=== PATIENT | male | born 1935 | race Caucasian/White ===

== ENCOUNTER 2018-08-09 08:12 | Day surgery (SDC) | payer OTHER ==
--- NOTE | 2018-06-21 11:51 | HP ---
DATE OF ADMISSION: The patient is to be admitted to [facility] on 08/02/18. HISTORY: This is an 82-year-old man admitted to the hospital for open reduction and repair of a longstanding chronic right inguinal scrotal hernia. According to the patient the hernia has been present for many years. It has never bothered him. After this was recently noticed by Dr. Salcedo of the Medical Service, he advised the patient to undergo definitive management. The patient has no specific underlying GI, or respiratory complaints to suggest predisposition to hernia formation. PAST MEDICAL HISTORY: Significant for heart disease and he is status post myocardial infarction years ago. He also has a history of hypercholesterolemia and diabetes. PAST SURGICAL HISTORY: Significant for an appendectomy done remotely. ALLERGIES: SULFA DRUGS. REGULAR MEDICATIONS: Multiple and include digoxin, enalapril, carvedilol, atorvastatin, metformin, oxybutynin, and finasteride. SOCIAL HISTORY: Negative tobacco. The patient did smoke remotely. No alcohol. FAMILY HISTORY: Father history of heart disease. Mother history of intracerebral hemorrhage. Siblings x2 with no solange issues. REVIEW OF SYSTEMS: Otherwise nil. PHYSICAL EXAMINATION: Patient examined in the erect and supine position, there is a large right inguinal scrotal hernia. There is no obvious left hernia. In the supine position a portion but not all of the right inguinal scrotal contents can be reduced. The testes are bilaterally atrophic. IMPRESSION: Longstanding chronically incarcerated right inguinal scrotal hernia. PLAN: Reduction of chronically incarcerated right inguinal scrotal hernia with mesh. Indications, alternatives, and possible complications reviewed. Issues that revolve about the mesh were reviewed extensively as well. Consent obtained. Patient is to be seen preoperatively by Dr. Scottie Salcedo of the Medical Service as well as Dr. Ramon of the Cardiology Service. Please refer to those notes for those medical details. LATISHA MAYA M.D. VIVIANA/[id number] cc: Scottie Salcedo MD [facility]
[2018-07-18 14:27] VITALS: BMI 32.3
--- NOTE | 2018-08-01 13:29 | HP ---
DATE OF ADMISSION: 08/02/2018 HISTORY: This is an updated history and physical examination on an 82-year-old man admitted for open reduction repair of a longstanding chronically incarcerated right inguinal scrotal hernia. His general medical condition has not changed and is significant for heart disease, and he is status post myocardial infarction. Also, history of hypocholesterolemia and diabetes. SURGICAL HISTORY: Significant for appendectomy remotely. ALLERGIES: SULFA DRUGS. REGULAR MEDICATIONS: Digoxin, enalapril, carvedilol, atorvastatin, metformin, oxybutynin, finasteride. SOCIAL HISTORY: Negative for tobacco. Patient did smoke remotely. Negative for alcohol. FAMILY HISTORY: Father , history of heart disease. Mother , history of intracerebral hemorrhage. Siblings x2 with no health issues. REVIEW OF SYSTEMS: Nil. PHYSICAL EXAMINATION: Abdomen: Unchanged, with large right inguinal scrotal hernia noted. IMPRESSION: Longstanding chronically incarcerated right inguinal scrotal hernia. PLAN: Repair chronically incarcerated right inguinal scrotal hernia with mesh. Indications, alternatives, possible complications were reviewed. LATISHA MAYA M.D. [id number]
[2018-08-09] MEDS ORDERED: TAMSULOSIN HCL 0.4 MG CAP ONE (08:36)
[2018-08-09] MEDS ORDERED: CEFAZOLIN 1 GM/D5W 1 GM/50 ML BAG ONE (08:37)
[2018-08-09] MEDS ORDERED: TAMSULOSIN HCL 0.4 MG CAP PO ONE (08:40)
[2018-08-09] MEDS ORDERED: DESFLURANE GAS 240 ML BOTTLE IH ONE (09:10)
[2018-08-09] MEDS ORDERED: BUPIVACAINE HCL/PF 0.5% (5MG/ML) 10 ML VIAL ONE (09:10)
[2018-08-09] MEDS ORDERED: SEVOFLURANE 250 ML BTL ONE (09:10)
[2018-08-09] MEDS ORDERED: ceFAZolin SODIUM 1 GM VIAL IVPB ONE (09:43)
[2018-08-09] MEDS ORDERED: BUPIVACAINE HCL/PF (5 MG/ML) 30 ML VIAL IJ ONE ×2 (10:27)
[2018-08-09] MEDS ORDERED: ONDANSETRON 4 MG/2 ML VIAL IVPUSH PRN (11:18)
[2018-08-09] MEDS ORDERED: LACTATED RINGERS SOLUTION 1,000 ML IV SCH (11:30)
[2018-08-09] MEDS ORDERED: DEXAMETHASONE SOD PHOSPHATE 4 MG/1 ML VIAL ONE (12:15)
[2018-08-09] MEDS ORDERED: DEXAMETHASONE SOD PHOSPHATE 4 MG/1 ML VIAL IVPUSH ONE (14:06)
[2018-08-09 14:48] VITALS: TEMP 97
[2018-08-09] MEDS ORDERED: METOCLOPRAMIDE HCL INJECTION 10 MG/2 ML VIAL ONE (14:49)
[2018-08-09] MEDS ORDERED: METOCLOPRAMIDE HCL INJECTION 10 MG/2 ML VIAL IVPB ONE (14:50)
[2018-08-09] MEDS ORDERED: ONDANSETRON 4 MG/2 ML VIAL IVPUSH ONE (14:56)
[2018-08-09] MEDS ORDERED: METOCLOPRAMIDE HCL INJECTION 10 MG/2 ML VIAL IVPUSH ONE (14:59)
[2018-08-09 17:51] VITALS: BP 138/67; PULSE 80
--- NOTE | 2018-08-09 23:21 | OP ---
DATE OF OPERATION: 08/09/2018 PREOPERATIVE DIAGNOSIS: Chronically incarcerated right inguinal scrotal hernia. POSTOPERATIVE DIAGNOSIS: Chronically incarcerated right inguinal scrotal hernia. PROCEDURE: Open reduction repair of chronically incarcerated right inguinal scrotal hernia with mesh/intermediate wound closure (8 cm). OPERATING SURGEON: Jose Elias Silva M.D. ARMORED CABLE MACHINE OPERATOR: Chuy Sawyer M.D. ANESTHESIA: General. ANESTHESIOLOGIST: Edda Callaway M.D. HISTORY: An 83-year-old man who presents for open reduction, repair of chronically incarcerated large right inguinal scrotal hernia with mesh. Indications, alternatives, possible complications reviewed. Consent obtained. DESCRIPTION OF PROCEDURE: With the patient in the supine position, after general anesthesia, the abdomen was prepped and draped in the usual sterile fashion using chlorhexidine. An 8-cm right groin incision was made between the right pubic tubercle and the right iliac spine. Incision was deepened into the subcutaneous space. All identified vessels in subcutaneous space were clamped, divided, and ligated. Ultimately, external oblique aponeurosis was identified. It was incised in the direction of its fibers through the external ring. The ilioinguinal nerve was identified and spared. The undersurface of the split external oblique aponeurosis remained at the level of the pubic tubercle. At the pubic tubercle, Coreen drain was placed around the cord structures. The cord was skeletonized of its cremasteric fibers. The large hernia sac and contents which appeared to represent bowel were from their attachment to the remaining cord structures and mobilized to the level of the preperitoneal fat and inferior epigastric vessels. At that junction the contents of the sac were easily reduced. The sac was opened, found to contain no residual contents. It was transfixed at its base with 0 silk suture material x2. The sac was amputated and sent as specimen and labeled right inguinal hernia sac. Now directing our attention to the inguinal floor, there was complete attenuation of the transversalis fascia. The transversalis fascia was split throughout its length. The preperitoneal tissues were reduced. Davol plug was placed in the preperitoneal space and tacked to the undersurface of the posterior musculature using interrupted 2-0 Prolene sutures. The attenuated transversalis fascia was imbricated in 2 layers with a Davol plug using a continuous 2-0 Prolene suture. The suture was placed and begun at the pubic tubercle, progressed superiorly recreating the internal ring to permit only fingertip entrance, and returning to the pubic tubercle where it was tied. An overlying mesh was then fashioned about the inguinal floor. It was tacked in place circumferentially using interrupted 2-0 Prolene sutures. The keyhole portion of the mesh was wrapped around the cord and tacked in place, buttressing the internal ring. Ultimately the cord and the ilioinguinal nerve were then returned to their anatomic positions. The external oblique aponeurosis was closed using continuous 3-0 Vicryl suture. After adequate hemostasis, the wound was closed in layers. Geovany fascia was approximated using interrupted 3-0 Vicryl suture. Subcutaneous tissue were approximated with interrupted 3-0 plain sutures. Skin edges were closed using continuous 4-0 Biosyn in the subcuticular space. Complete closure of the wound, 10 mL of 0.5% Marcaine was freely instilled in the wound. Dermabond applied. Procedure terminated. Needle, sponge, instrument count correct. Estimated blood loss minimal. Specimen right inguinal hernia sac. Drains none. Implant mesh plug. Patient tolerated the procedure. Procedure was terminated. Patient was transferred to recovery. Johnny [id number] MTDD
--- NOTE | 2018-08-10 16:50 | PATH ---
Surgical Pathology Report Patient Name: DOUGLAS ROBB [facility]. Rec. #: [id number] /Age/Gender: 1935 (Age: 83) / M Account: [id number] Location: [facility] SURGICAL Taken: 08/09/2018 Received: 08/09/2018 Reported: 08/10/2018 Physicians: Jose Elias Silva M.D. Specimen(s) Received HERNIA SAC Clinical History Right incarcerated inguinal hernia Final Diagnosis HERNIA SAC, RIGHT, OPEN INCARCERATED HERNIA REPAIR: HERNIA SAC. Electronically Signed Katheryn Harris M.D. Gross Description Received in formalin labeled "hernia sac," is a 6.0 x 5.0 x 2.0 cm quintana-herrera portion of fibromembranous tissue with minimal attached fat, consistent with a hernia sac. A food products sales representative section is submitted in one cassette. /08/09/201808/09/2018
== END 2018-08-09 17:20 | disposition home or self-care (01) ==
LOC: JASU-SURG 08:12
PROVIDERS: ATTEND Surgery
PROC: 0YU50JZ Supplement Right Inguinal Region with Synthetic Substitute, Open Approach (ICD-10-PCS; principal; 2018-08-09 09:30)
DX: K40.30 Unilateral inguinal hernia, with obstruction, without gangrene, not specified as recurrent (principal); I10 Essential (primary) hypertension; E11.9 Type 2 diabetes mellitus without complications; Z79.84 Long term (current) use of oral hypoglycemic drugs
CPT/HCPCS: 82962; 88302-TC; 94010; 94760

== ENCOUNTER 2021-12-17 13:52 | Inpatient (IN) | payer OTHER ==
[2021-12-17 15:57] VITALS: BMI 32.4
[2021-12-17 17:03] LABS: INR 1.02 (0.83-1.09); PROTHROMBIN TIME (PATIENT) 11.7 SEC (9.7-13.0)
[2021-12-17 17:05] LABS: ACTIVATED PTT 27.5 SECONDS (25.2-36.5)
[2021-12-17 17:11] LABS: HEMATOCRIT 36.3 % (35.4-49); HEMOGLOBIN 12.4 G/dL (11.7-16.9); MCH 33.7 pg (25.7-33.7); MCHC 34.2 g/dl (32.0-35.9); MEAN CELL VOLUME 98.5 fl (80-96); MEAN PLT VOLUME 8.7 fl (7.5-11.1); PLATELET COUNT 119.4 10^3/uL (134-434); RBC 3.69 10^6/uL (4.00-5.60); RDW 14.5 % (11.9-15.9); WHITE BLOOD COUNT 6.5 10^3/uL (4.0-10.8)
[2021-12-17 17:30] LABS: ALBUMIN 4.3 g/dl (3.4-5.0); BILIRUBIN,TOTAL 0.7 mg/dl (0.2-1); CALCIUM 10.5 mg/dl (8.5-10); CREATININE 1.3 mg/dl (0.55-1.3); TOT PROT 7.6 g/dl (6.4-8.2)
[2021-12-17 21:05] LABS: EPITHELIAL CELLS FEW /hpf
[2021-12-18] MEDS: sitaGLIPtin PHOSPHATE 50 MG TABLET PO SCH (06:18)
[2021-12-18 08:14] LABS: ALBUMIN 3.8 g/dl (3.4-5.0); BILIRUBIN,TOTAL 0.8 mg/dl (0.2-1); CALCIUM 9.7 mg/dl (8.5-10); CREATININE 1.4 mg/dl (0.55-1.3); MAGNESIUM 1.5 mg/dL (1.8-2.4); TOT PROT 6.7 g/dl (6.4-8.2)
[2021-12-18 08:25] LABS: HEMATOCRIT 34.8 % (35.4-49); HEMOGLOBIN 11.7 G/dL (11.7-16.9); MCH 33.4 pg (25.7-33.7); MCHC 33.6 g/dl (32.0-35.9); MEAN CELL VOLUME 99.2 fl (80-96); MEAN PLT VOLUME 8.9 fl (7.5-11.1); PLATELET COUNT 121.3 10^3/uL (134-434); RBC 3.51 10^6/uL (4.00-5.60); RDW 14.7 % (11.9-15.9); WHITE BLOOD COUNT 6.7 10^3/uL (4.0-10.8)
[2021-12-18] MEDS: DIGOXIN 0.125 MG TABLET PO SCH (09:12)
[2021-12-18] MEDS: ASPIRIN COATED 81 MG TABLET.EC PO SCH (09:12)
[2021-12-18] MEDS: TAMSULOSIN HCL 0.4 MG CAP PO SCH (09:12)
[2021-12-18] MEDS: ENALAPRIL MALEATE 10 MG TABLET PO SCH (09:13)
[2021-12-18] MEDS: CARVEDILOL 6.25 MG TABLET (FP) PO SCH ×2 (10:00→22:22)
[2021-12-18] MEDS ORDERED: MAGNESIUM SULF 50% (8.12 MEQ/2 ML-1 GM VIAL) IVPB ONE (12:02)
[2021-12-18] MEDS ORDERED: MAGNESIUM SULFATE IN WATER 2 GM/50 ML IVPB IVPB ONE (12:30)
[2021-12-18] MEDS: CEFTRIAXONE 1 GM in DEXTROSE 5%-WATER - 50 ML IVPB SCH (14:30)
[2021-12-18] MEDS ORDERED: DEXTROSE 5%-WATER - 50 ML IVPB ONE (14:44)
[2021-12-18] MEDS ORDERED: cefTRIAXone SODIUM 1 GM VIAL ONE (14:44)
[2021-12-18 16:10] LABS: SARS-CoV-2 NAA Detected (Not Detected)
[2021-12-18] MEDS: INSULIN (NOVOLOG) ASPART 100 UNITS/ML 10ML VIAL SQ SCH ×2 (16:30→22:23)
[2021-12-18] MEDS: HEPARIN NA (PORCINE) 5,000 UNITS/ML 1ML VIAL SQ SCH (22:21)
[2021-12-18] MEDS: ATORVASTATIN CA 20 MG TABLET (FP) PO SCH (22:22)
[2021-12-18] MEDS: CHOLECALCIFEROL (VIT D3) 1,000 UNIT (25 MCG) TABLET PO SCH (22:22)
[2021-12-19] MEDS: INSULIN (NOVOLOG) ASPART 100 UNITS/ML 10ML VIAL SQ SCH ×4 (06:23→22:07)
[2021-12-19] MEDS: HEPARIN NA (PORCINE) 5,000 UNITS/ML 1ML VIAL SQ SCH ×3 (06:23→21:39)
[2021-12-19] MEDS: sitaGLIPtin PHOSPHATE 50 MG TABLET PO SCH (06:23)
[2021-12-19] MEDS ORDERED: DEXTROSE 5%-WATER - 50 ML IVPB ONE (10:04)
[2021-12-19] MEDS ORDERED: cefTRIAXone SODIUM 1 GM VIAL ONE (10:04)
[2021-12-19] MEDS: DIGOXIN 0.125 MG TABLET PO SCH (10:09)
[2021-12-19] MEDS: TAMSULOSIN HCL 0.4 MG CAP PO SCH (10:10)
[2021-12-19] MEDS: CEFTRIAXONE 1 GM in DEXTROSE 5%-WATER - 50 ML IVPB SCH (10:10)
[2021-12-19] MEDS: CARVEDILOL 6.25 MG TABLET (FP) PO SCH ×2 (10:10→21:39)
[2021-12-19] MEDS: ASPIRIN COATED 81 MG TABLET.EC PO SCH (10:10)
[2021-12-19] MEDS: ENALAPRIL MALEATE 10 MG TABLET PO SCH (11:05)
[2021-12-19] MEDS ORDERED: REMDESIVIR 200 MG in SODIUM CHLORIDE 250 ML IVPB ONE (14:26)
[2021-12-19] MEDS ORDERED: MAGNESIUM OXIDE 400 MG TABLET (FP) PO ONE (14:28)
[2021-12-19] MEDS ORDERED: DEXAMETHASONE SOD PHOSPHATE 10 MG/1 ML VIAL IM SCH (14:30)
[2021-12-19] MEDS: DEXAMETHASONE SOD PHOSPHATE 10 MG/1 ML VIAL IVPUSH SCH ×2 (15:16→21:38)
[2021-12-19] MEDS: CHOLECALCIFEROL (VIT D3) 1,000 UNIT (25 MCG) TABLET PO SCH (21:38)
[2021-12-19] MEDS: ATORVASTATIN CA 20 MG TABLET (FP) PO SCH (21:38)
[2021-12-20] MEDS: DEXAMETHASONE SOD PHOSPHATE 10 MG/1 ML VIAL IVPUSH SCH ×2 (02:59→09:44)
[2021-12-20] MEDS: HEPARIN NA (PORCINE) 5,000 UNITS/ML 1ML VIAL SQ SCH ×3 (06:12→23:00)
[2021-12-20] MEDS: sitaGLIPtin PHOSPHATE 50 MG TABLET PO SCH (06:12)
[2021-12-20] MEDS: INSULIN (NOVOLOG) ASPART 100 UNITS/ML 10ML VIAL SQ SCH ×4 (06:12→23:20)
[2021-12-20 08:12] LABS: BASO % 0.2 % (0-2.0); HEMATOCRIT 35.1 % (35.4-49); HEMOGLOBIN 12.3 GM/dL (11.7-16.9); LYMPH % 10.5 % (8-40); MCHC 35.1 g/dl (32.0-35.9); MEAN CELL VOLUME 97.1 fl (80-96); NEUT % 86.3 % (42.8-82.8); PLATELET COUNT 110 10^3/uL (134-434); RBC 3.61 M/mm3 (4.00-5.60); RDW 14.8 % (11.9-15.9); WHITE BLOOD COUNT 5.3 K/mm3 (4.0-10.0)
[2021-12-20 08:38] LABS: CALCIUM 9.4 mg/dL (8.5-10.1)
[2021-12-20 08:39] LABS: ALBUMIN 3.5 g/dl (3.4-5.0); BLOOD UREA NITROGEN 34.8 mg/dL (7-18); MAGNESIUM 2.3 mg/dL (1.8-2.4)
[2021-12-20 08:42] LABS: CREATININE 1.6 mg/dL (0.55-1.3)
[2021-12-20 08:43] LABS: BILIRUBIN,TOTAL 0.4 mg/dL (0.2-1); TOT PROT 7.2 g/dl (6.4-8.2)
[2021-12-20] MEDS ORDERED: cefTRIAXone SODIUM 1 GM VIAL ONE (09:41)
[2021-12-20] MEDS ORDERED: DEXTROSE 5%-WATER - 50 ML IVPB ONE (09:41)
[2021-12-20] MEDS: TAMSULOSIN HCL 0.4 MG CAP PO SCH (09:44)
[2021-12-20] MEDS: CARVEDILOL 6.25 MG TABLET (FP) PO SCH ×2 (09:44→22:59)
[2021-12-20] MEDS: DIGOXIN 0.125 MG TABLET PO SCH (09:44)
[2021-12-20] MEDS: CEFTRIAXONE 1 GM in DEXTROSE 5%-WATER - 50 ML IVPB SCH (09:44)
[2021-12-20] MEDS: ASPIRIN COATED 81 MG TABLET.EC PO SCH (09:44)
[2021-12-20] MEDS: PANTOPRAZOLE 40 MG TABLET PO SCH (09:44)
[2021-12-20] MEDS: ENALAPRIL MALEATE 10 MG TABLET PO SCH (09:47)
[2021-12-20] MEDS: REMDESIVIR 100 MG in SODIUM CHLORIDE 250 ML IVPB SCH (16:00)
[2021-12-20] MEDS: CHOLECALCIFEROL (VIT D3) 1,000 UNIT (25 MCG) TABLET PO SCH (22:59)
[2021-12-20] MEDS: ATORVASTATIN CA 20 MG TABLET (FP) PO SCH (22:59)
[2021-12-21] MEDS: HEPARIN NA (PORCINE) 5,000 UNITS/ML 1ML VIAL SQ SCH ×3 (06:56→22:33)
[2021-12-21] MEDS: INSULIN (NOVOLOG) ASPART 100 UNITS/ML 10ML VIAL SQ SCH ×4 (06:56→22:48)
[2021-12-21] MEDS: sitaGLIPtin PHOSPHATE 50 MG TABLET PO SCH (06:56)
[2021-12-21] MEDS ORDERED: DEXTROSE 5%-WATER - 50 ML IVPB ONE (09:24)
[2021-12-21] MEDS ORDERED: cefTRIAXone SODIUM 1 GM VIAL ONE (09:24)
[2021-12-21] MEDS: CEFTRIAXONE 1 GM in DEXTROSE 5%-WATER - 50 ML IVPB SCH (09:27)
[2021-12-21 09:29] LABS: BASO % 0.2 % (0-2.0); HEMATOCRIT 33.9 % (35.4-49); HEMOGLOBIN 11.9 GM/dL (11.7-16.9); LYMPH % 10.9 % (8-40); MCH 33.9 pg (25.7-33.7); MEAN CELL VOLUME 96.8 fl (80-96); MEAN PLT VOLUME 9.3 fl (7.5-11.1); MONO % 7.5 % (3.8-10.2); NEUT % 81.4 % (42.8-82.8); PLATELET COUNT 116 10^3/uL (134-434); RBC 3.51 M/mm3 (4.00-5.60); RDW 14.8 % (11.9-15.9); WHITE BLOOD COUNT 8.9 K/mm3 (4.0-10.0)
[2021-12-21] MEDS: DEXAMETHASONE SOD PHOSPHATE 10 MG/1 ML VIAL IVPUSH SCH (09:29)
[2021-12-21] MEDS: ASPIRIN COATED 81 MG TABLET.EC PO SCH (09:29)
[2021-12-21] MEDS: DIGOXIN 0.125 MG TABLET PO SCH (09:29)
[2021-12-21] MEDS: CARVEDILOL 6.25 MG TABLET (FP) PO SCH ×2 (09:29→22:33)
[2021-12-21] MEDS: PANTOPRAZOLE 40 MG TABLET PO SCH (09:29)
[2021-12-21] MEDS: TAMSULOSIN HCL 0.4 MG CAP PO SCH (09:29)
[2021-12-21] MEDS: ENALAPRIL MALEATE 10 MG TABLET PO SCH (09:32)
[2021-12-21 09:49] LABS: BLOOD UREA NITROGEN 51.6 mg/dL (7-18)
[2021-12-21 09:50] LABS: ALBUMIN 3.1 g/dl (3.4-5.0)
[2021-12-21 09:51] LABS: CALCIUM 9.1 mg/dL (8.5-10.1); MAGNESIUM 2.4 mg/dL (1.8-2.4)
[2021-12-21 09:53] LABS: CREATININE 1.8 mg/dL (0.55-1.3)
[2021-12-21 09:57] LABS: TOT PROT 6.7 g/dl (6.4-8.2)
[2021-12-21 09:59] LABS: BILIRUBIN,TOTAL 0.3 mg/dL (0.2-1)
[2021-12-21] MEDS: REMDESIVIR 100 MG in SODIUM CHLORIDE 250 ML IVPB SCH (14:54)
[2021-12-21] MEDS ORDERED: SODIUM CHLORIDE 0.45% 1,000 ML IV SCH (15:00)
[2021-12-21] MEDS: CHOLECALCIFEROL (VIT D3) 1,000 UNIT (25 MCG) TABLET PO SCH (22:33)
[2021-12-21] MEDS: ATORVASTATIN CA 20 MG TABLET (FP) PO SCH (22:33)
[2021-12-22] MEDS: HEPARIN NA (PORCINE) 5,000 UNITS/ML 1ML VIAL SQ SCH ×3 (06:28→22:12)
[2021-12-22] MEDS: sitaGLIPtin PHOSPHATE 50 MG TABLET PO SCH (06:29)
[2021-12-22] MEDS: INSULIN (NOVOLOG) ASPART 100 UNITS/ML 10ML VIAL SQ SCH ×4 (06:33→22:14)
[2021-12-22 07:46] LABS: BASO % 0.1 % (0-2.0); HEMATOCRIT 33.7 % (35.4-49); HEMOGLOBIN 11.4 GM/dL (11.7-16.9); MCH 32.9 pg (25.7-33.7); MCHC 33.9 g/dl (32.0-35.9); MEAN CELL VOLUME 97.2 fl (80-96); MEAN PLT VOLUME 9.6 fl (7.5-11.1); MONO % 6.6 % (3.8-10.2); NEUT % 82.3 % (42.8-82.8); PLATELET COUNT 121 10^3/uL (134-434); RBC 3.47 M/mm3 (4.00-5.60); RDW 14.6 % (11.9-15.9); WHITE BLOOD COUNT 8.1 K/mm3 (4.0-10.0)
[2021-12-22 08:15] LABS: EPI CELLS 15 /uL (0-25.1); HYALINE CASTS 1 /uL (0-3.1); URINE APPEARANCE CLEAR; URINE BACTERIA 6 /uL (0-1359); URINE BILIRUBIN NEGATIVE (NEGATIVE); URINE COLOR YELLOW; URINE GLUCOSE (UA) 1+ (NEGATIVE); URINE KETONE NEGATIVE (NEGATIVE); URINE LEUK ESTERASE 1+ (NEGATIVE); URINE NITRITE NEGATIVE (NEGATIVE); URINE PROTEIN TRACE (NEGATIVE); URINE RBC 7 /uL (0-23.9); URINE UROBILINOGEN 0.2 mg/dL (0.2-1.0); URINE WBC 121 /uL (0-25.8)
[2021-12-22 08:38] LABS: ALBUMIN 3.2 g/dl (3.4-5.0); BILIRUBIN,TOTAL 0.2 mg/dL (0.2-1); BLOOD UREA NITROGEN 50.8 mg/dL (7-18); CALCIUM 8.7 mg/dL (8.5-10.1); CREATININE 1.6 mg/dL (0.55-1.3); MAGNESIUM 2.5 mg/dL (1.8-2.4); TOT PROT 6.6 g/dl (6.4-8.2)
[2021-12-22] MEDS ORDERED: cefTRIAXone SODIUM 1 GM VIAL ONE (08:58)
[2021-12-22] MEDS ORDERED: DEXTROSE 5%-WATER - 50 ML IVPB ONE (08:59)
[2021-12-22] MEDS: ASPIRIN COATED 81 MG TABLET.EC PO SCH (09:06)
[2021-12-22] MEDS: TAMSULOSIN HCL 0.4 MG CAP PO SCH (09:07)
[2021-12-22] MEDS: CARVEDILOL 6.25 MG TABLET (FP) PO SCH ×2 (09:07→22:13)
[2021-12-22] MEDS: PANTOPRAZOLE 40 MG TABLET PO SCH (09:07)
[2021-12-22] MEDS: CEFTRIAXONE 1 GM in DEXTROSE 5%-WATER - 50 ML IVPB SCH (09:07)
[2021-12-22] MEDS: DEXAMETHASONE SOD PHOSPHATE 10 MG/1 ML VIAL IVPUSH SCH (09:09)
[2021-12-22] MEDS: DIGOXIN 0.125 MG TABLET PO SCH (09:11)
[2021-12-22] MEDS ORDERED: SODIUM CHLORIDE 0.45% 1,000 ML IV SCH (11:00)
[2021-12-22] MEDS: REMDESIVIR 100 MG in SODIUM CHLORIDE 250 ML IVPB SCH (16:47)
[2021-12-22] MEDS: CHOLECALCIFEROL (VIT D3) 1,000 UNIT (25 MCG) TABLET PO SCH (22:13)
[2021-12-22] MEDS: ATORVASTATIN CA 20 MG TABLET (FP) PO SCH (22:13)
[2021-12-23] MEDS: HEPARIN NA (PORCINE) 5,000 UNITS/ML 1ML VIAL SQ SCH ×3 (06:31→21:54)
[2021-12-23] MEDS: sitaGLIPtin PHOSPHATE 50 MG TABLET PO SCH (06:31)
[2021-12-23] MEDS: INSULIN (NOVOLOG) ASPART 100 UNITS/ML 10ML VIAL SQ SCH ×4 (08:16→21:58)
[2021-12-23] MEDS: TAMSULOSIN HCL 0.4 MG CAP PO SCH (08:48)
[2021-12-23 09:15] LABS: BASO % 0.2 % (0-2.0); EOS % 0.2 % (0-4.5); HEMATOCRIT 33.1 % (35.4-49); HEMOGLOBIN 11.1 GM/dL (11.7-16.9); LYMPH % 17.6 % (8-40); MCH 32.5 pg (25.7-33.7); MCHC 33.6 g/dl (32.0-35.9); MEAN CELL VOLUME 96.9 fl (80-96); MEAN PLT VOLUME 9.6 fl (7.5-11.1); MONO % 9.2 % (3.8-10.2); NEUT % 72.8 % (42.8-82.8); PLATELET COUNT 114 10^3/uL (134-434); RBC 3.41 M/mm3 (4.00-5.60); RDW 14.6 % (11.9-15.9); WHITE BLOOD COUNT 6.6 K/mm3 (4.0-10.0)
[2021-12-23] MEDS ORDERED: DEXTROSE 5%-WATER - 50 ML IVPB ONE (09:47)
[2021-12-23] MEDS ORDERED: cefTRIAXone SODIUM 1 GM VIAL ONE (09:47)
[2021-12-23] MEDS: CEFTRIAXONE 1 GM in DEXTROSE 5%-WATER - 50 ML IVPB SCH (09:52)
[2021-12-23] MEDS: ASPIRIN COATED 81 MG TABLET.EC PO SCH (09:52)
[2021-12-23] MEDS: PANTOPRAZOLE 40 MG TABLET PO SCH (09:52)
[2021-12-23] MEDS: DEXAMETHASONE SOD PHOSPHATE 10 MG/1 ML VIAL IVPUSH SCH (09:52)
[2021-12-23] MEDS: CARVEDILOL 6.25 MG TABLET (FP) PO SCH ×2 (09:52→21:53)
[2021-12-23] MEDS: DIGOXIN 0.125 MG TABLET PO SCH (09:53)
[2021-12-23 10:56] LABS: ALBUMIN 3.1 g/dl (3.4-5.0); BILIRUBIN,TOTAL 0.2 mg/dL (0.2-1); BLOOD UREA NITROGEN 42.2 mg/dL (7-18); CALCIUM 8.6 mg/dL (8.5-10.1); CREATININE 1.4 mg/dL (0.55-1.3); MAGNESIUM 2.5 mg/dL (1.8-2.4); TOT PROT 6.3 g/dl (6.4-8.2)
[2021-12-23] MEDS: REMDESIVIR 100 MG in SODIUM CHLORIDE 250 ML IVPB SCH (15:29)
[2021-12-23 21:09] LABS: SARS-CoV-2 NAA Detected (Not Detected)
[2021-12-23] MEDS: CHOLECALCIFEROL (VIT D3) 1,000 UNIT (25 MCG) TABLET PO SCH (21:54)
[2021-12-23] MEDS: ATORVASTATIN CA 20 MG TABLET (FP) PO SCH (21:54)
[2021-12-24] MEDS: HEPARIN NA (PORCINE) 5,000 UNITS/ML 1ML VIAL SQ SCH (06:31)
[2021-12-24] MEDS: sitaGLIPtin PHOSPHATE 50 MG TABLET PO SCH (06:32)
[2021-12-24] MEDS: INSULIN (NOVOLOG) ASPART 100 UNITS/ML 10ML VIAL SQ SCH ×2 (06:46→11:23)
[2021-12-24 08:31] VITALS: TEMP 98.2
[2021-12-24] MEDS ORDERED: DEXTROSE 5%-WATER - 50 ML IVPB ONE (08:56)
[2021-12-24] MEDS ORDERED: cefTRIAXone SODIUM 1 GM VIAL ONE (08:56)
[2021-12-24] MEDS: DIGOXIN 0.125 MG TABLET PO SCH (09:00)
[2021-12-24] MEDS: TAMSULOSIN HCL 0.4 MG CAP PO SCH (09:00)
[2021-12-24] MEDS: PANTOPRAZOLE 40 MG TABLET PO SCH (09:00)
[2021-12-24] MEDS: ASPIRIN COATED 81 MG TABLET.EC PO SCH (09:00)
[2021-12-24] MEDS: CARVEDILOL 6.25 MG TABLET (FP) PO SCH (09:01)
[2021-12-24] MEDS: CEFTRIAXONE 1 GM in DEXTROSE 5%-WATER - 50 ML IVPB SCH (09:03)
[2021-12-24] MEDS ORDERED: DEXAMETHASONE 4 MG TABLET (FP) PO SCH (10:00)
[2021-12-24 10:41] LABS: BASO % 0.3 % (0-2.0); EOS % 1.2 % (0-4.5); HEMATOCRIT 35.2 % (35.4-49); LYMPH % 24.4 % (8-40); MCH 32.8 pg (25.7-33.7); MEAN CELL VOLUME 96.6 fl (80-96); MEAN PLT VOLUME 8.9 fl (7.5-11.1); MONO % 8.7 % (3.8-10.2); NEUT % 65.4 % (42.8-82.8); PLATELET COUNT 114 10^3/uL (134-434); RBC 3.64 M/mm3 (4.00-5.60); RDW 14.6 % (11.9-15.9); WHITE BLOOD COUNT 7.5 K/mm3 (4.0-10.0)
[2021-12-24 12:59] LABS: ALBUMIN 3.3 g/dl (3.4-5.0); BILIRUBIN,TOTAL 0.3 mg/dL (0.2-1); BLOOD UREA NITROGEN 40.4 mg/dL (7-18); CALCIUM 9.1 mg/dL (8.5-10.1); CREATININE 1.4 mg/dL (0.55-1.3); MAGNESIUM 2.4 mg/dL (1.8-2.4); TOT PROT 6.6 g/dl (6.4-8.2)
[2021-12-24 13:19] VITALS: BP 139/79; PULSE 62
== END 2021-12-24 14:20 | disposition home health service (06) | DRG 177 ==
LOC: FER 13:52 → OBSVTOIN 16:57 → FM/S 16:57 → J4S 12-19 01:41
PROVIDERS: ADMIT Internal Medicine; ATTEND Nurse Practitioner Acute Care
PROC: XW033E5 Introduction of Remdesivir Anti-infective into Peripheral Vein, Percutaneous Approach, New Technology Group 5 (ICD-10-PCS; principal; 2021-12-19)
DX: U07.1 COVID-19 (principal); J12.82 Pneumonia due to coronavirus disease 2019; N17.9 Acute kidney failure, unspecified; I47.2 Ventricular tachycardia; N39.0 Urinary tract infection, site not specified; I11.0 Hypertensive heart disease with heart failure; F02.80 Dementia in other diseases classified elsewhere, unspecified severity, without behavioral disturbance, psychotic disturbance, mood disturbance, and anxiety; E11.9 Type 2 diabetes mellitus without complications; G30.9 Alzheimer's disease, unspecified; E78.5 Hyperlipidemia, unspecified; I25.10 Atherosclerotic heart disease of native coronary artery without angina pectoris; N40.0 Benign prostatic hyperplasia without lower urinary tract symptoms; R55 Syncope and collapse; E66.9 Obesity, unspecified; Z68.32 Body mass index [BMI] 32.0-32.9, adult; I50.9 Heart failure, unspecified
CPT/HCPCS: 36415; 70450-TC; 71045-TC-FY; 72125-TC; 76775-TC; 80053; 80162; 81003; 81015; 82436; 82962; 83036; 83615; 83735; 83835; 84133; 84300; 84443; 84484; 85025; 85027; 85379; 85610; 85730; 86140; 87086; 87186; 93005; 93306-TC; 93880-TC; 94761; 97116-GP; 97161-GP; 99285-25; C9399; C9803-CS; J1100; J1644; U0003; U0005

== ENCOUNTER 2023-03-10 00:37 | Emergency (ER) | payer OTHER ==
[2023-03-10 01:16] VITALS: RESP 17; BMI 32.1
[2023-03-10 02:14] LABS: BASO % 0.6 % (0-2.0); EOS % 5.1 % (0-4.5); HEMATOCRIT 35.6 % (35.4-49); HEMOGLOBIN 11.9 GM/dL (11.7-16.9); LYMPH % 18.6 % (8-40); MCH 33.2 pg (25.7-33.7); MCHC 33.5 g/dl (32.0-35.9); MEAN CELL VOLUME 98.9 fl (80-96); MEAN PLT VOLUME 9.2 fl (7.5-11.1); NEUT % 67.7 % (42.8-82.8); PLATELET COUNT 131 10^3/uL (134-434); RDW 14.1 % (11.9-15.9); WHITE BLOOD COUNT 8.6 K/mm3 (4.0-10.0)
[2023-03-10 02:19] LABS: EPI CELLS 5 /uL (0-25.1); HYALINE CASTS 2 /uL (0-3.1); PH,URINE 5.5 (5.0-8.0); URINE APPEARANCE CLEAR; URINE BACTERIA 246 /uL (0-1359); URINE BILIRUBIN NEGATIVE (NEGATIVE); URINE COLOR YELLOW; URINE GLUCOSE (UA) NEGATIVE (NEGATIVE); URINE KETONE NEGATIVE (NEGATIVE); URINE LEUK ESTERASE 2+ (NEGATIVE); URINE NITRITE NEGATIVE (NEGATIVE); URINE PROTEIN 1+ (NEGATIVE); URINE RBC 24 /uL (0-23.9); URINE UROBILINOGEN 0.2 mg/dL (0.2-1.0); URINE WBC 485 /uL (0-25.8)
[2023-03-10] MEDS ORDERED: ONDANSETRON 4 MG/2 ML VIAL IVPB ONE (02:32)
[2023-03-10 02:33] LABS: CALCIUM 10.4 mg/dL (8.5-10.1)
[2023-03-10 02:37] LABS: CREATININE 1.6 mg/dL (0.55-1.3)
[2023-03-10] MEDS ORDERED: ONDANSETRON 4 MG/2 ML VIAL ONE ×2 (02:37→02:38)
[2023-03-10 02:39] LABS: TOT PROT 7.6 g/dl (6.4-8.2)
[2023-03-10 02:51] LABS: BILIRUBIN,TOTAL 0.5 mg/dL (0.2-1)
[2023-03-10] MEDS ORDERED: SODIUM CHLORIDE 250 ML IV STA (03:25)
[2023-03-10] MEDS ORDERED: CIPROFLOXACIN 500 MG TABLET (RESTRICTED TO ID) PO ONE (04:04)
[2023-03-10 04:17] VITALS: BP 155/85; PULSE 81; TEMP 98.1
[2023-03-10] MEDS ORDERED: CIPROFLOXACIN 250 MG TABLET (RESTRICTED TO ID) PO ONE (04:30)
== END 2023-03-10 05:29 | disposition home or self-care (01) ==
LOC: FER 00:37
PROC: 3E033GC Introduction of Other Therapeutic Substance into Peripheral Vein, Percutaneous Approach (ICD-10-PCS; principal; 2023-03-10)
PROC: 3E0337Z Introduction of Electrolytic and Water Balance Substance into Peripheral Vein, Percutaneous Approach (ICD-10-PCS; 2023-03-10)
DX: R11.0 Nausea (principal); R42 Dizziness and giddiness; N39.0 Urinary tract infection, site not specified
CPT/HCPCS: 36415; 70450-TC; 71045-TC-FY; 80053; 80162; 81003; 84484; 85025; 87086; 93005; 99285-25

== ENCOUNTER 2023-09-28 17:07 | Inpatient (IN) | payer OTHER ==
[2023-09-28 20:54] LABS: BASO % 0.5 % (0-2.0); EOS % 0.1 % (0-4.5); HEMATOCRIT 34.9 % (35.4-49); HEMOGLOBIN 11.9 GM/dL (11.7-16.9); LYMPH % 7.5 % (8-40); MCH 33.8 pg (25.7-33.7); MEAN CELL VOLUME 99.4 fl (80-96); MEAN PLT VOLUME 9.6 fl (7.5-11.1); MONO % 8.1 % (3.8-10.2); NEUT % 83.8 % (42.8-82.8); PLATELET COUNT 143 10^3/uL (134-434); RBC 3.51 M/mm3 (4.00-5.60); RDW 13.9 % (11.9-15.9); WHITE BLOOD COUNT 15.3 K/mm3 (4.0-10.0)
[2023-09-28 21:07] LABS: ACTIVATED PTT 27.3 SECONDS (25.2-36.5); INR 1.15 (0.83-1.09); PROTHROMBIN TIME (PATIENT) 13.3 SEC (9.7-13.0)
[2023-09-28 21:22] LABS: POTASSIUM 4.2 mmol/L (3.5-5.1)
[2023-09-28 21:24] LABS: CALCIUM 9.2 mg/dL (8.5-10.1)
[2023-09-28 21:25] LABS: ALBUMIN 3.2 g/dl (3.4-5.0); BLOOD UREA NITROGEN 35.8 mg/dL (7-18); MAGNESIUM 2.1 mg/dL (1.8-2.4)
[2023-09-28 21:28] LABS: CREATININE 1.3 mg/dL (0.55-1.3); PHOSPHOROUS 2.9 mg/dL (2.5-4.9)
[2023-09-28 21:29] LABS: BILIRUBIN,TOTAL 0.7 mg/dL (0.2-1); TOT PROT 6.8 g/dl (6.4-8.2)
[2023-09-28] MEDS ORDERED: SODIUM CHLORIDE 0.9% 500 ML INFUS.BAG IV ONE (22:20)
[2023-09-29] MEDS ORDERED: SODIUM CHLORIDE 1,000 ML IV SCH ×2 (01:30→05:43)
[2023-09-29 05:13] LABS: EPI CELLS 5 /uL (0-25.1); HYALINE CASTS 0 /uL (0-3.1); URINE APPEARANCE CLOUDY; URINE BACTERIA >9,000 /uL (0-1359); URINE BILIRUBIN NEGATIVE (NEGATIVE); URINE COLOR YELLOW; URINE GLUCOSE (UA) 3+ (NEGATIVE); URINE KETONE NEGATIVE (NEGATIVE); URINE LEUK ESTERASE 2+ (NEGATIVE); URINE NITRITE NEGATIVE (NEGATIVE); URINE PROTEIN 1+ (NEGATIVE); URINE RBC 107 /uL (0-23.9); URINE UROBILINOGEN 0.2 mg/dL (0.2-1.0); URINE WBC 2893 /uL (0-25.8)
[2023-09-29] MEDS ORDERED: HEPARIN NA (PORCINE) 5,000 UNITS/ML 1ML VIAL ONE ×2 (05:30→15:13)
[2023-09-29] MEDS: HEPARIN NA (PORCINE) 5,000 UNITS/ML 1ML VIAL SQ SCH ×3 (05:34→21:52)
[2023-09-29] MEDS ORDERED: CEFTRIAXONE 1 GM/50 ML BAG ONE (05:55)
[2023-09-29 06:05] LABS: YEAST NONE SEEN (NEGATIVE)
[2023-09-29] MEDS: CEFTRIAXONE 1 GM in DEXTROSE 5%-WATER - 50 ML IVPB SCH (06:07)
[2023-09-29 06:45] LABS: HEMATOCRIT 32.6 % (35.4-49); HEMOGLOBIN 10.8 GM/dL (11.7-16.9); MCH 33.5 pg (25.7-33.7); MCHC 33.1 g/dl (32.0-35.9); MEAN CELL VOLUME 101.2 fl (80-96); MEAN PLT VOLUME 9.5 fl (7.5-11.1); PLATELET COUNT 135 10^3/uL (134-434); RBC 3.22 M/mm3 (4.00-5.60); RDW 13.7 % (11.9-15.9)
[2023-09-29 07:04] LABS: POTASSIUM 4.2 mmol/L (3.5-5.1)
[2023-09-29 07:07] LABS: ALBUMIN 2.9 g/dl (3.4-5.0); BLOOD UREA NITROGEN 38.6 mg/dL (7-18); CALCIUM 9.5 mg/dL (8.5-10.1); MAGNESIUM 1.9 mg/dL (1.8-2.4)
[2023-09-29 07:10] LABS: CREATININE 1.4 mg/dL (0.55-1.3); PHOSPHOROUS 2.6 mg/dL (2.5-4.9)
[2023-09-29 07:12] LABS: BILIRUBIN,TOTAL 0.7 mg/dL (0.2-1); TOT PROT 6.4 g/dl (6.4-8.2)
[2023-09-29] MEDS ORDERED: DIGOXIN 0.25 MG TABLET ONE (09:54)
[2023-09-29] MEDS ORDERED: CARVEDILOL 6.25 MG TABLET (FP) ONE (09:54)
[2023-09-29] MEDS ORDERED: TAMSULOSIN HCL 0.4 MG CAP ONE (09:55)
[2023-09-29] MEDS: CARVEDILOL 6.25 MG TABLET (FP) PO SCH ×2 (10:13→21:52)
[2023-09-29] MEDS: DIGOXIN 0.25 MG TABLET PO SCH (10:13)
[2023-09-29] MEDS: TAMSULOSIN HCL 0.4 MG CAP PO SCH ×2 (10:13→21:52)
[2023-09-29 20:56] VITALS: BMI 31.3
[2023-09-29] MEDS: ATORVASTATIN CA 20 MG TABLET (FP) PO SCH (21:52)
[2023-09-30] MEDS: HEPARIN NA (PORCINE) 5,000 UNITS/ML 1ML VIAL SQ SCH ×3 (05:28→21:59)
[2023-09-30 07:18] LABS: BASO % 0.8 % (0-2.0); EOS % 2.4 % (0-4.5); HEMATOCRIT 29.5 % (35.4-49); HEMOGLOBIN 9.9 GM/dL (11.7-16.9); LYMPH % 17.9 % (8-40); MCHC 33.5 g/dl (32.0-35.9); MEAN CELL VOLUME 101.3 fl (80-96); MEAN PLT VOLUME 9.1 fl (7.5-11.1); MONO % 8.8 % (3.8-10.2); NEUT % 70.1 % (42.8-82.8); PLATELET COUNT 106 10^3/uL (134-434); RBC 2.91 M/mm3 (4.00-5.60); RDW 13.6 % (11.9-15.9); WHITE BLOOD COUNT 9.7 K/mm3 (4.0-10.0)
[2023-09-30 08:07] LABS: ALBUMIN 2.7 g/dl (3.4-5.0); BLOOD UREA NITROGEN 40.6 mg/dL (7-18); CALCIUM 9.3 mg/dL (8.5-10.1)
[2023-09-30 08:10] LABS: CREATININE 1.4 mg/dL (0.55-1.3)
[2023-09-30 08:12] LABS: BILIRUBIN,TOTAL 0.4 mg/dL (0.2-1); TOT PROT 5.9 g/dl (6.4-8.2)
[2023-09-30] MEDS: TAMSULOSIN HCL 0.4 MG CAP PO SCH (09:02)
[2023-09-30] MEDS: DIGOXIN 0.25 MG TABLET PO SCH (09:03)
[2023-09-30] MEDS: CEFTRIAXONE 1 GM in DEXTROSE 5%-WATER - 50 ML IVPB SCH (09:03)
[2023-09-30] MEDS: CARVEDILOL 6.25 MG TABLET (FP) PO SCH ×2 (09:03→22:00)
[2023-09-30] MEDS: POLYETHYLENE GLYCOL (HEALTHYLAX) 3350 17 GM PACKET PO SCH ×2 (12:07→22:00)
[2023-09-30] MEDS: ATORVASTATIN CA 20 MG TABLET (FP) PO SCH (22:00)
[2023-10-01] MEDS: HEPARIN NA (PORCINE) 5,000 UNITS/ML 1ML VIAL SQ SCH ×2 (05:28→14:17)
[2023-10-01 07:31] LABS: EOS % 3.9 % (0-4.5); HEMATOCRIT 29.5 % (35.4-49); LYMPH % 22.2 % (8-40); MCH 34.2 pg (25.7-33.7); MCHC 33.9 g/dl (32.0-35.9); MEAN CELL VOLUME 100.9 fl (80-96); MEAN PLT VOLUME 9.4 fl (7.5-11.1); MONO % 9.9 % (3.8-10.2); PLATELET COUNT 112 10^3/uL (134-434); RBC 2.92 M/mm3 (4.00-5.60); RDW 13.4 % (11.9-15.9); WHITE BLOOD COUNT 7.5 K/mm3 (4.0-10.0)
[2023-10-01 07:47] LABS: POTASSIUM 4.5 mmol/L (3.5-5.1)
[2023-10-01 07:50] LABS: CALCIUM 9.1 mg/dL (8.5-10.1)
[2023-10-01 07:51] LABS: ALBUMIN 2.6 g/dl (3.4-5.0); BLOOD UREA NITROGEN 30.5 mg/dL (7-18); MAGNESIUM 1.8 mg/dL (1.8-2.4)
[2023-10-01 07:54] LABS: CREATININE 1.3 mg/dL (0.55-1.3)
[2023-10-01 07:55] LABS: TOT PROT 5.9 g/dl (6.4-8.2)
[2023-10-01 07:56] LABS: BILIRUBIN,TOTAL 0.5 mg/dL (0.2-1)
[2023-10-01] MEDS ORDERED: FINASTERIDE 5 MG TABLET (FP) PO SCH (10:00)
[2023-10-01] MEDS: CARVEDILOL 6.25 MG TABLET (FP) PO SCH ×2 (10:01→21:26)
[2023-10-01] MEDS: DIGOXIN 0.25 MG TABLET PO SCH (10:01)
[2023-10-01] MEDS: POLYETHYLENE GLYCOL (HEALTHYLAX) 3350 17 GM PACKET PO SCH ×2 (10:01→21:28)
[2023-10-01] MEDS: CEFTRIAXONE 1 GM in DEXTROSE 5%-WATER - 50 ML IVPB SCH (10:02)
[2023-10-01] MEDS ORDERED: SODIUM CHLORIDE 0.45% 1,000 ML IV SCH (12:15)
[2023-10-02] MEDS ORDERED: SODIUM CHLORIDE 1,000 ML IV SCH (08:00)
[2023-10-02 08:23] LABS: BASO % 1.2 % (0-2.0); EOS % 4.9 % (0-4.5); HEMATOCRIT 29.1 % (35.4-49); HEMOGLOBIN 9.8 GM/dL (11.7-16.9); LYMPH % 24.5 % (8-40); MCH 34.1 pg (25.7-33.7); MCHC 33.8 g/dl (32.0-35.9); MEAN CELL VOLUME 100.9 fl (80-96); MEAN PLT VOLUME 9.4 fl (7.5-11.1); MONO % 10.7 % (3.8-10.2); NEUT % 58.7 % (42.8-82.8); PLATELET COUNT 112 10^3/uL (134-434); RBC 2.88 M/mm3 (4.00-5.60); RDW 13.3 % (11.9-15.9); WHITE BLOOD COUNT 6.6 K/mm3 (4.0-10.0)
[2023-10-02] MEDS ORDERED: TAMSULOSIN HCL 0.4 MG CAP PO SCH (08:30)
[2023-10-02 08:40] LABS: POTASSIUM 4.5 mmol/L (3.5-5.1)
[2023-10-02 08:58] LABS: BILIRUBIN,TOTAL 0.7 mg/dL (0.2-1)
[2023-10-02 08:59] LABS: TOT PROT 5.9 g/dl (6.4-8.2)
[2023-10-02 09:26] LABS: ALBUMIN 2.8 g/dl (3.4-5.0); CALCIUM 9.3 mg/dL (8.5-10.1)
[2023-10-02 09:27] LABS: BLOOD UREA NITROGEN 26.4 mg/dL (7-18)
[2023-10-02 09:30] LABS: CREATININE 1.2 mg/dL (0.55-1.3)
[2023-10-02] MEDS: CARVEDILOL 6.25 MG TABLET (FP) PO SCH ×2 (10:52→21:47)
[2023-10-02] MEDS: DIGOXIN 0.25 MG TABLET PO SCH (10:52)
[2023-10-02] MEDS: POLYETHYLENE GLYCOL (HEALTHYLAX) 3350 17 GM PACKET PO SCH ×2 (10:52→21:47)
[2023-10-02] MEDS: CEFTRIAXONE 1 GM in DEXTROSE 5%-WATER - 50 ML IVPB SCH (10:52)
[2023-10-03 07:39] LABS: POTASSIUM 4.5 mmol/L (3.5-5.1)
[2023-10-03 07:41] LABS: CALCIUM 9.6 mg/dL (8.5-10.1)
[2023-10-03 07:42] LABS: ALBUMIN 2.8 g/dl (3.4-5.0); BLOOD UREA NITROGEN 25.5 mg/dL (7-18)
[2023-10-03 07:45] LABS: CREATININE 1.3 mg/dL (0.55-1.3)
[2023-10-03 07:46] LABS: BILIRUBIN,TOTAL 0.5 mg/dL (0.2-1)
[2023-10-03 07:47] LABS: TOT PROT 6.1 g/dl (6.4-8.2)
[2023-10-03] MEDS: DIGOXIN 0.25 MG TABLET PO SCH (09:33)
[2023-10-03] MEDS: CARVEDILOL 6.25 MG TABLET (FP) PO SCH (09:33)
[2023-10-03] MEDS ORDERED: CEFUROXIME AXETIL 500 MG TABLET PO SCH (10:00)
[2023-10-03] MEDS: POLYETHYLENE GLYCOL (HEALTHYLAX) 3350 17 GM PACKET PO SCH (10:30)
[2023-10-03 11:00] VITALS: BP 151/59; PULSE 77; RESP 19; TEMP 98.2
== END 2023-10-03 14:18 | DRG 690 ==
LOC: JER 17:07 → JERBED 22:57 → OBSVTOIN 09-29 12:20 → J4W 09-29 17:53
PROVIDERS: ADMIT Internal Medicine; ATTEND Internal Medicine
DX: N39.0 Urinary tract infection, site not specified (principal); M62.82 Rhabdomyolysis; I24.89 Other forms of acute ischemic heart disease; N17.9 Acute kidney failure, unspecified; I25.10 Atherosclerotic heart disease of native coronary artery without angina pectoris; G30.9 Alzheimer's disease, unspecified; F02.80 Dementia in other diseases classified elsewhere, unspecified severity, without behavioral disturbance, psychotic disturbance, mood disturbance, and anxiety; E78.5 Hyperlipidemia, unspecified; I12.9 Hypertensive chronic kidney disease with stage 1 through stage 4 chronic kidney disease, or unspecified chronic kidney disease; E11.22 Type 2 diabetes mellitus with diabetic chronic kidney disease; N18.9 Chronic kidney disease, unspecified; R33.9 Retention of urine, unspecified; K59.00 Constipation, unspecified; E86.0 Dehydration; I25.2 Old myocardial infarction; E66.9 Obesity, unspecified; Z68.31 Body mass index [BMI] 31.0-31.9, adult; N40.0 Benign prostatic hyperplasia without lower urinary tract symptoms; B96.20 Unspecified Escherichia coli [E. coli] as the cause of diseases classified elsewhere; W18.30XA Fall on same level, unspecified, initial encounter; Y92.098 Other place in other non-institutional residence as the place of occurrence of the external cause; Y99.9 Unspecified external cause status; Z95.0 Presence of cardiac pacemaker
CPT/HCPCS: 0241U-QW; 36415; 70450-TC; 71045-TC-FY; 72125-TC; 74176-TC; 80053; 80162; 81003; 82550; 82553; 83605; 83735; 83880; 84100; 84484; 85025; 85027; 85610; 85730; 86850; 86900; 86901; 87040; 87086; 87186; 93005; 93010; 93306-TC; 94761; 97116-GP; 97162-GP; 99285-25; G0378; J1644